=== PATIENT | female | born 1965 | race African-American/Black ===

== ENCOUNTER 2022-04-23 10:26 | Emergency (ER) | payer MEDICAID, OTHER ==
[~2022-04-23] VITALS: Ht 167.6 cm; Wt 80.0 kg
[2022-04-23 10:39] VITALS: BP 149/84
[2022-04-23] MEDS ORDERED: CYCLOBENZAPRINE 10MG TABLET PO ONE (14:00)
[2022-04-23] MEDS ORDERED: KETOROLAC 15MG/ML VIAL IM ONE (14:00)
[2022-04-23 14:11] LABS: BASOPHILS % 0.9 % (0.0-2.0); EOSINOPHILS % 2.3 % (0.0-5.0); HEMOGLOBIN. 12.9 g/dL (12.0-16.0); LYMPHOCYTES % 16.4 % (20.0-50.0); MEAN CORPUSCULAR HEMOGLOBIN 27.5 pg (28.0-32.0); MEAN CORPUSCULAR VOLUME 83.3 fL (81.0-99.0); MEAN PLATELET VOLUME 8.7 fl (7.4-10.4); MONOCYTES % 9.7 % (2.0-8.0); NEUTROPHILS % 70.7 % (40.0-76.0); PLATELET 267 x1000/uL (130-400); RED BLOOD CELL COUNT 4.68 mill/uL (4.2-5.4); RED CELL DISTRIBUTION WIDTH 14.4 % (11.6-14.6)
[2022-04-23 14:18] LABS: PROTHROMBIN TIME 10.9 sec (9.6-11.0)
[2022-04-23 14:19] LABS: CHLORIDE 105 mEq/L (98-107)
[2022-04-23] MEDS ORDERED: NAPR-681 MT (15:45)
[2022-04-23] MEDS ORDERED: CYCL10TA21 MT (15:45)
== END 2022-04-23 20:30 | disposition home or self-care (01) ==
LOC: ER 10:26
DX: M79.605 Pain in left leg (principal); I10 Essential (primary) hypertension; Z98.890 Other specified postprocedural states
CPT/HCPCS: 36415; 72190; 73552; 80053; 85025; 85610; 93005; 93971; 96372; 99285; J1885

== ENCOUNTER 2022-08-22 16:40 | Emergency (ER) | payer MEDICAID ==
[~2022-08-22] VITALS: Ht 167.6 cm; Wt 73.0 kg
[~2022-08-22 16:40] MED LIST: CYCL10TA21 MT; NAPR-681 MT
[2022-08-22] MEDS ORDERED: ACETAMINOPHEN 325MG TABLET PO ONE (17:30)
[2022-08-22] MEDS ORDERED: IBUPROFEN 800MG TABLET PO ONE (17:30)
[2022-08-22 17:39] VITALS: BP 147/92
[2022-08-22] MEDS ORDERED: CYCL10TA21 MT (20:18)
[2022-08-22] MEDS ORDERED: IBUP-2029 MT (20:18)
== END 2022-08-22 20:40 | disposition home or self-care (01) ==
LOC: ER 16:40
DX: S16.1XXA Strain of muscle, fascia and tendon at neck level, initial encounter (principal); V43.52XA Car driver injured in collision with other type car in traffic accident, initial encounter; Y93.89 Activity, other specified; Y92.488 Other paved roadways as the place of occurrence of the external cause
CPT/HCPCS: 71250; 72131; 99285